=== PATIENT | female | born 1975 | race Native Hawaiian/Other Pacific Islander ===

== ENCOUNTER 2016-12-06 10:24 | Day surgery (SDC) | payer OTHER ==
[2016-12-03 10:55] VITALS: BMI 28.3
[2016-12-06] MEDS ORDERED: Propofol 10 mg/ml Inj (20 ML) ONE (11:49)
[2016-12-06] MEDS ORDERED: Midazolam 2 MG/2 ML VIAL ONE (11:49)
[2016-12-06] MEDS ORDERED: Lactated Ringer's 1,000 ML IV ONE (11:56)
[2016-12-06] MEDS: ceFAZolin IV 1 gm in Dextrose 1 GM/50 ML BAG IVPB ONE ×2 (12:05→12:24)
[2016-12-06] MEDS ORDERED: Lidocaine Hydrochloride 5 ML INJ ONE (12:08)
--- NOTE | 2016-12-06 12:24 | PCM.SURG1 ---
Surgeon's Initial Post Op Note - Surgeon's Notes Surgeon: dr luque Fish Roe Processor: none Type of Anesthesia: General LMA Anesthesia Administered By: dr valdez Pre-Operative Diagnosis: 41 yr with AUB r/o polyp Operative Findings: see the op reoprt Post-Operative Diagnosis: same with end polyp Operation Performed: d & c, hysterscopy, myasure Specimen/Specimens Removed: ecc. emc. polyp Estimated Blood Loss: EBL {In ML}: 20 Blood Products Given: N/A Drains Used: No Drains Post-Op Condition: Good Date of Surgery/Procedure: 12/06/16 Time of Surgery/Procedure: 12:45
[2016-12-06] MEDS ORDERED: HYDROmorphone 0.5 mg/0.5 ml ISec IVP PRN (12:34)
[2016-12-06 13:37] VITALS: RESP 15; O2SAT 100
[2016-12-06 14:23] VITALS: BP 103/55; PULSE 72; TEMP 97.5
--- NOTE | 2016-12-09 09:30 | OP ---
Date of Surgery: 12/06/16 PREOPERATIVE DIAGNOSIS: A 41-year-old 2 para 2 with abnormal uterine bleeding, rule out polyp. POSTOPERATIVE DIAGNOSES: 1. A 41-year-old 2 para 2 with abnormal uterine bleeding, rule out polyp. 2. Endometrial polyp. SURGEON: Paco Flores MD [employer] SURGEON: None. ANESTHESIA: General anesthesia. ANESTHESIOLOGIST: Dr. Carlson. COMPLICATIONS: None. ESTIMATED BLOOD LOSS: 20 mL. DEFICIT: 105 mL. PROCEDURE PERFORMED: D and C, hysteroscopy and MyoSure. DESCRIPTION OF PROCEDURE: After informed consent was obtained, the patient was brought to the operating room, placed on the table where general anesthesia was given. Once the anesthesia was given, the patient was prepped and draped in the normal sterile fashion. Examination under anesthesia found uterus to be 8-week size, no pelvic or adnexal masses. After that, the lips of the cervix were grasped with a tenaculum. Gentle dilatation of the cervix was done. Hysteroscope was introduced and found at the lower uterine segment on the upper wall which was thickened ----- decision was made to use MyoSure. MyoSure was used to remove the polyp. After that, the sharp curettage of the endometrium was done. ECC was done. ------ was introduced, there was no polyp, then the tenaculum was taken out. The patient tolerated the procedure well. Lap, sponge, and instrument counts were correct x2. ------. The patient to follow up in the office in 2 weeks. Prescription for pain and antibiotics given. Paco Flores MD
== END 2016-12-06 14:33 | disposition home or self-care (01) ==
LOC: C.SDS 10:24
PROVIDERS: ATTEND Obstetrics & Gynecology
DX: N84.0 Polyp of corpus uteri (principal); N93.9 Abnormal uterine and vaginal bleeding, unspecified
CPT/HCPCS: 58558; 88305; J0690; J1100; J1885; J2250; J2405; J2704; J3010; J7120